=== PATIENT | male | born 2000 | race Hispanic/Latino ===

== ENCOUNTER 2025-02-27 12:13 | Emergency (ER) | payer BC ==
[2025-02-27 13:37] LABS: Hematocrit 46.0 % (42.0-52.0); Hemoglobin 14.5 g/dL (14.0-18.0); Mean Corpuscular Hemoglobin 27.8 pg (27.0-31.0); Mean Corpuscular Volume 88.2 fl (78.0-98.0); Platelet Count 504 10x3/uL (130-400); Red Blood Cell (RBC) Count 5.21 mill/uL (4.70-6.10); White Blood Cell (WBC) Count 13.1 10x3/uL (4.8-10.8)
[2025-02-27 13:40] LABS: ALT (SGPT) 52 U/L (Less than 45); AST (SGOT) 48 U/L (11-34); Albumin 4.0 g/dL (3.1-4.5); Alkaline Phosphatase 90 U/L (40-110); Anion Gap 18 mmol/L (10-20); BUN (Urea Nitrogen) 14 mg/dL (8.9-20.6); Bilirubin, Total 0.7 mg/dL (0.3-1.2); Calc. Creatinine Clearance 0 mL/min (70-130); Calcium 9.2 mg/dL (7.8-10.44); Carbon Dioxide 22 mmol/L (22-29); Chloride 102 mmol/L (98-107); Globulin 4.2 g/dL (2.4-3.5); Glucose 88 mg/dL (70-105); Lipase 15 U/L (8-78); Potassium 3.6 mmol/L (3.5-5.1); Sodium 138 mmol/L (136-145)
[2025-02-27] MEDS ORDERED: Metoclopramide HCl 10 MG (2 mL) VIAL ONE (14:04)
[2025-02-27 14:20] LABS: MDiff Complete? YES; Platelet Adequacy Comment Appears Increased
== END 2025-02-27 14:41 | disposition home or self-care (01) ==
LOC: BURERS 12:13
DX: B34.9 Viral infection, unspecified (principal)
CPT/HCPCS: 36415; 80053; 83605; 83690; 85025; 87428; 96374; J2765; Q0162